=== PATIENT | female | born 1940 | race Caucasian/White ===

== ENCOUNTER → 2018-06-01 | Outpatient (CLI) | payer OTHER ==
--- NOTE | 2018-06-01 13:08 | RAD ---
EXAM DESCRIPTION: Chest,2 Views CLINICAL HISTORY: ASTHMA COMPARISON: None TECHNIQUE: PA/lateral FINDINGS: Heart is large with prominent central pulmonary vessels. No peter congestive failure. No pleural fluid accumulation. No pneumothorax. Lungs are clear with no consolidating infiltrate. Lateral view shows intact sternum and extensive spurring in the T-spine. IMPRESSION: No acute process is identified in the chest. Electronically signed by: Wojciech Henao MD 06/01/2018 1:07 PM CDT
== END ==
LOC: RAD 12:18
PROVIDERS: ATTEND Family Medicine
DX: J45.909 Unspecified asthma, uncomplicated (principal)

== ENCOUNTER → 2018-08-29 | Outpatient (CLI) | payer OTHER ==
--- NOTE | 2018-08-29 13:40 | US ---
EXAM DESCRIPTION: Soft Tissue,Extremity: ULTRASOUND. CLINICAL HISTORY: SWELLING, MASS OR LUMP COMPARISON: None Available. TECHNIQUE: Transcutaneous scanning: Garg-scale and Doppler modes. Left lateral foot palpable mass. FINDINGS: Mass palpable on the left lateral foot. Within the subcutaneous tissues is a somewhat demarcated homogeneous lesion in the adipose tissues slightly more homogeneous than the surrounding adipose tissues. Dimensions are 2.4 x 2.4 x 0.6 cm. Not vascular. No distinct cyst. No large calcification or parenchymal edema. No abnormal vascularity. 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 Electronically signed by: Dameon Steele MD 08/29/2018 1:38 PM CDT
== END ==
LOC: US 09:58
PROVIDERS: ATTEND Family Medicine
DX: R22.9 Localized swelling, mass and lump, unspecified (principal)